=== PATIENT | male | born 1950 | race Caucasian/White ===

== ENCOUNTER 2017-08-12 20:11 | Emergency (ER) | payer MEDICAID ==
[~2017-08-12] VITALS: Ht 188 cm; Wt 78.0 kg
[2017-08-12] MEDS ORDERED: BACITRACIN ZINC OINT UDPKT TOP ONE (22:45)
[2017-08-12] MEDS ORDERED: TETANUS, DIPHTHERIA, PERTUSSIS VAC/PF 0.5ML (>7YR OLD) IM ONE (22:45)
[2017-08-12] MEDS ORDERED: HYDROCODONE/ACETAMINOPHEN 5/325MG TABLET PO ONE (22:45)
[2017-08-13] MEDS ORDERED: IBUPROFEN 400MG TABLET PO ONE (02:00)
[2017-08-13 02:50] VITALS: BP 135/94
== END 2017-08-13 02:58 | disposition home or self-care (01) ==
LOC: ER 20:30
DX: S40.812A Abrasion of left upper arm, initial encounter (principal); I25.2 Old myocardial infarction; M25.512 Pain in left shoulder; F17.210 Nicotine dependence, cigarettes, uncomplicated; F10.10 Alcohol abuse, uncomplicated; Y90.9 Presence of alcohol in blood, level not specified; Z87.81 Personal history of (healed) traumatic fracture; Z90.49 Acquired absence of other specified parts of digestive tract; W01.198A Fall on same level from slipping, tripping and stumbling with subsequent striking against other object, initial encounter; Y93.89 Activity, other specified; Y92.488 Other paved roadways as the place of occurrence of the external cause
CPT/HCPCS: 71010; 73030; 90471; 90715; 99284; A4565

== ENCOUNTER 2017-08-13 05:13 | Emergency (ER) | payer MEDICAID ==
[~2017-08-13] VITALS: Ht 188 cm; Wt 77.0 kg
[2017-08-13] MEDS ORDERED: ACETAMINOPHEN 500MG TABLET PO ONE (06:30)
[2017-08-13 06:57] VITALS: BP 137/91
== END 2017-08-13 07:09 | disposition home or self-care (01) ==
LOC: ER 05:20
DX: M24.812 Other specific joint derangements of left shoulder, not elsewhere classified (principal); S40.212A Abrasion of left shoulder, initial encounter; I25.2 Old myocardial infarction; F17.210 Nicotine dependence, cigarettes, uncomplicated; W01.198A Fall on same level from slipping, tripping and stumbling with subsequent striking against other object, initial encounter; Y93.89 Activity, other specified; Y92.89 Other specified places as the place of occurrence of the external cause
CPT/HCPCS: 99283

== ENCOUNTER 2017-08-18 10:03 | Emergency (ER) | payer MEDICAID ==
[~2017-08-18] VITALS: Ht 188 cm; Wt 77.0 kg
[2017-08-18 11:58] LABS: BASOPHILS % 0.7 % (0.0-2.0); EOSINOPHILS % 1.7 % (0.0-5.0); HEMATOCRIT. 31.7 % (42.0-52.0); HEMOGLOBIN. 10.9 g/dL (14.0-18.0); LYMPHOCYTES % 18.3 % (20.0-50.0); MEAN CORPUSCULAR HEMOGLOBIN 32.7 pg (28.0-32.0); MEAN CORPUSCULAR VOLUME 95.3 fL (80.0-94.0); MEAN PLATELET VOLUME 7.2 fl (7.4-10.4); MONOCYTES % 9.7 % (2.0-8.0); NEUTROPHILS % 69.6 % (40.0-76.0); PLATELET 308 x1000/uL (130-400); RED BLOOD CELL COUNT 3.33 mill/uL (4.7-6.1); RED CELL DISTRIBUTION WIDTH 13.3 % (11.6-14.6)
[2017-08-18 12:12] LABS: CARBON DIOXIDE 30 mEq/L (21-32); CHLORIDE 105 mEq/L (98-107)
[2017-08-18] MEDS ORDERED: IOHEXOL-300 100 ML BOTTLE ONE (15:01)
[2017-08-18 20:21] VITALS: BP 131/96
== END 2017-08-18 20:32 | disposition short-term general hospital (02) ==
LOC: ER 10:33
DX: S30.1XXA Contusion of abdominal wall, initial encounter (principal); S29.011A Strain of muscle and tendon of front wall of thorax, initial encounter; I25.2 Old myocardial infarction; W14.XXXA Fall from tree, initial encounter; Y93.89 Activity, other specified; Y92.89 Other specified places as the place of occurrence of the external cause; Y99.8 Other external cause status; Z90.49 Acquired absence of other specified parts of digestive tract
CPT/HCPCS: 36415; 71260; 74177; 80053; 85025; 99285; Q9967; Z7610

== ENCOUNTER 2018-04-18 09:40 | Emergency (ER) | payer MEDICARE, MEDICAID ==
[~2018-04-18] VITALS: Ht 188 cm; Wt 82.0 kg
[2018-04-18] MEDS ORDERED: IBUPROFEN 600MG TABLET PO ONE (11:00)
[2018-04-18] MEDS ORDERED: TRAMADOL 50MG TABLET PO ONE (11:00)
[2018-04-18 12:58] VITALS: BP 145/109
== END 2018-04-18 13:08 | disposition home or self-care (01) ==
LOC: ER 09:40
DX: M25.511 Pain in right shoulder (principal); M79.621 Pain in right upper arm; F17.200 Nicotine dependence, unspecified, uncomplicated; Z90.49 Acquired absence of other specified parts of digestive tract; Z96.649 Presence of unspecified artificial hip joint; W01.198A Fall on same level from slipping, tripping and stumbling with subsequent striking against other object, initial encounter; Y93.89 Activity, other specified; Y92.89 Other specified places as the place of occurrence of the external cause
CPT/HCPCS: 73000; 73030; 73060; 99284

== ENCOUNTER 2019-03-20 23:10 | Emergency (ER) | payer MEDICARE, OTHER ==
[~2019-03-20] VITALS: Ht 182.9 cm; Wt 80.0 kg
[2019-03-21] MEDS ORDERED: KETOROLAC 15MG/ML VIAL IM ONE (00:15)
[2019-03-21 02:21] VITALS: BP 122/68
== END 2019-03-21 02:23 | disposition home or self-care (01) ==
LOC: ER 23:10
DX: S70.01XA Contusion of right hip, initial encounter (principal); Z90.49 Acquired absence of other specified parts of digestive tract; Z96.649 Presence of unspecified artificial hip joint; W01.0XXA Fall on same level from slipping, tripping and stumbling without subsequent striking against object, initial encounter; Y93.89 Activity, other specified; Y92.89 Other specified places as the place of occurrence of the external cause
CPT/HCPCS: 73502; 96372; 99283; J1885

== ENCOUNTER 2021-09-14 17:48 | Emergency (ER) | payer MEDICAID, MEDICARE, OTHER ==
[~2021-09-14] VITALS: Ht 180.3 cm; Wt 82.0 kg
[2021-09-14] MEDS ORDERED: IBUPROFEN 400MG TABLET PO ONE (18:30)
[2021-09-15 06:21] VITALS: BP 135/87
== END 2021-09-15 06:24 | disposition home or self-care (01) ==
LOC: ER 17:48
DX: S82.62XA Displaced fracture of lateral malleolus of left fibula, initial encounter for closed fracture (principal); Z87.828 Personal history of other (healed) physical injury and trauma; W01.0XXA Fall on same level from slipping, tripping and stumbling without subsequent striking against object, initial encounter; Y93.89 Activity, other specified; Y92.488 Other paved roadways as the place of occurrence of the external cause
CPT/HCPCS: 29515; 73560; 73590; 73610; 99284